=== PATIENT | male | born 1995 | race Hispanic/Latino ===

== ENCOUNTER 2024-01-21 14:44 | Emergency (ER) | payer SELFPAY ==
[~2024-01-21] VITALS: Ht 172.7 cm; Wt 104.3 kg
[2024-01-21] MEDS: acetaMINOPHEN 500 MG TABLET PO ONE (16:53)
[2024-01-21] MEDS: cloNIDine HCL 0.1 MG TABLET PO ONE (16:54)
[2024-01-21] MEDS: dexaMETHasone SOD PHOSPHATE 4 MG/ML 1ML VIAL IM ONE (16:54)
[2024-01-21] MEDS: ketOROlac 60 MG VIAL (30MG/ML) IM ONE (16:54)
[2024-01-21] MEDS ORDERED: BUTA-271 PO (17:36)
[2024-01-21] MEDS ORDERED: ENAL-89 PO (17:36)
[2024-01-21 17:44] VITALS: BP 142/65; PULSE 66; RESP 17; TEMP 97.9; O2SAT 98
== END 2024-01-21 17:53 | disposition home or self-care (01) ==
LOC: EDH 14:44
DX: G44.209 Tension-type headache, unspecified, not intractable (principal); I10 Essential (primary) hypertension; G43.909 Migraine, unspecified, not intractable, without status migrainosus
CPT/HCPCS: 99284; 96372 ×2; J1100; J1885